=== PATIENT | female | born 1945 | race Caucasian/White ===

== ENCOUNTER 2018-03-08 15:58 | Observation (INO) | payer MEDICARE, OTHER, SELFPAY ==
[2018-03-08 16:05] VITALS: BP 125/75; PULSE 88; RESP 16; TEMP 36.3; O2SAT 97; BMI 29.7
--- NOTE | 2018-03-08 16:08 | DI.RAD.S_ITS ---
PROCEDURE: XR KNEE RT 3V INDICATIONS: Mechanical fall off 4 ft ladder, Right knee pain and medial swelling. TECHNIQUE: 3 views of the knee were acquired. COMPARISON: [facility], , KNEE 3V RIGHT, 01/05/2016, 14:30. [facility], , KNEE 3V LEFT, 01/05/2016, 14:30. FINDINGS: Bones: Heterogeneity and increased lucency involving the lateral tibial plateau and the proximal fibula is new since the previous examination and is suspicious for subtle fractures. No displaced fractures or dislocations are identified. Soft tissues: There appears to be a small joint effusion. No suspicious soft tissue calcifications. IMPRESSION: Probable nondisplaced fractures involving the left tibial plateau and head of the fibula. Please consider CT for further evaluation. Dictated by: Kvng Dc M.D. on 03/08/2018 at 16:42 Approved by: Kvng Dc M.D. on 03/08/2018 at 16:46
--- NOTE | 2018-03-08 16:09 | DI.RAD.S_ITS ---
PROCEDURE: XR ANKLE RT MIN 3V INDICATIONS: Mechanical fall off 4 ft ladder. Right ankle pain and swelling. TECHNIQUE: 3 views of the ankle were acquired. COMPARISON: [facility], , ANKLE 3 VIEWS LEFT, 01/05/2016, 14:30. FINDINGS: Bones: There is an obliquely oriented fracture identified involving the lateral malleolus that extends into the joint space. No additional fractures are appreciated. Ankle mortise is well-maintained. There distal tibial-fibular syndesmosis is not well evaluated. There may be a small developing plantar calcaneal spur. Soft tissues: There is a tibiotalar joint effusion. Soft tissue swelling about the ankle is more prominent overlying the lateral malleolus. IMPRESSION: 1. Nondisplaced lateral malleolar fracture. 2. Right tibiotalar joint effusion. Dictated by: Kvng Dc M.D. on 03/08/2018 at 16:46 Approved by: Kvng Dc M.D. on 03/08/2018 at 16:48
--- NOTE | 2018-03-08 16:42 | ED_ITS ---
HPI - Extremity Injury (Lower) <Tatiana Guaman PA-C - Last Filed: 03/08/18 22:06> General Chief Complaint: Extremity Injury, Lower Stated Complaint: FELL OFF LADDER 4 FT RT LEG INJURY Time Seen by Provider: 03/08/18 16:42 Source: patient Mode of arrival: wheelchair Limitations: no limitations History of Present Illness HPI Narrative: This 73-year-old female was up on a 4 to 4-1/2 foot ladder when she fell down, with the latter tangled in her leg. She fell onto carpet. Since then, she has had pain in the leg basically from her thigh distal. She states she really has not been able to bear weight on this due to the pain, dragged herself to the sofa and pushed herself up with her left foot. She can' t really tell whether pain is worse than 1 area versus another, she did notice a knot on the front of her ankle. She took a couple of oxycodone at home and iced the area, but still very painful. This happened about 3 hr ago. She denies any other injury. She denies any head contusion, neck or back pain. She states that she has some chronic hip pain due to bursitis, but she does not think she injured her hip at all. Related Data Home Medications Medication Instructions Recorded Confirmed CHOLECALCIFEROL (VITAMIN D3) 400 iu PO Q DAY #0 08/25/10 03/09/18 (Vitamin D3) MULTIVITAMIN/MINERALS (Thera M 1 tab PO Q DAY #0 08/25/10 03/09/18 Plus Tablet) Tiotropium [place] (Spiriva) 18 mcg RT Q DAY PRN #0 08/25/10 03/09/18 fluoxetine [Prozac] 40 mg PO QDAY #0 05/04/11 03/09/18 diphenoxylate-atropine 2 tab PO QAM AND QHS PRN #0 04/13/13 03/09/18 hydrocodone-acetaminophen [[place]] 1 tab PO PRN #0 04/13/13 03/09/18 oxycodone-acetaminophen [Percocet] 1 tab PO HS PRN #0 04/13/13 03/09/18 trazodone 50 mg PO HS #0 04/13/13 03/09/18 Allergies Allergy/AdvReac Type Severity Reaction Status Date / Time Sulfa (Sulfonamide Allergy Mild Rash Verified 03/08/18 17:07 Antibiotics) adhesive tape AdvReac Mild SENSITIVE Verified 03/08/18 17:07 TO PAPER codeine AdvReac Mild Nausea/Vomi Verified 03/08/18 17:07 ting Review of Systems <DEMARCUS Villalta Last Filed: 03/08/18 22:06> Review of Systems All systems reviewed & are unremarkable except as noted in HPI and below Exam <DEMARCUS Villalta Last Filed: 03/08/18 22:06> Narrative Exam Narrative: GENERAL APPEARANCE: Patient sitting comfortably, in no distress. LUNGS: Clear to auscultation bilaterally. HEART: Rate and rhythm regular without murmur, normal S1 and S2, no S3 or S4. MS: Right lower extremity is tender over the mid femur, entirety of the anterior knee, peña, anterior ankle and medial toes. There is moderate effusion over the right ankle. She has limited range of motion throughout secondary to tenderness. She is able to plantar flex and dorsiflex the toes with tenderness. EXTREMITIES: Ft are cool, not cold, no cyanosis, pedal pulses are intact bilaterally, sensation is grossly intact Initial Vital Signs Initial Vital Signs: Vital Signs Temperature 97.4 F L 03/08/18 16:05 Pulse Rate 88 03/08/18 16:05 Respiratory Rate 16 03/08/18 16:05 Blood Pressure 125/75 H 03/08/18 16:05 Pulse Oximetry 97 03/08/18 16:05 <Jeny Ragland DO - Last Filed: 03/09/18 02:54> Initial Vital Signs Initial Vital Signs: Vital Signs Temperature 97.4 F L 03/08/18 16:05 Pulse Rate 88 03/08/18 16:05 Respiratory Rate 16 03/08/18 16:05 Blood Pressure 125/75 H 03/08/18 16:05 Pulse Oximetry 97 03/08/18 16:05 Procedures <DEMARCUS Villalta Last Filed: 03/08/18 22:06> Orthopedic Splinting/Casting Injury #1: Additional Comments: Stirrup and knee splint were placed. Patient was comfortable in this with the knee held in slight flexion, distal sensation intact, foot is warm and pink with brisk cap refill Course <Tatiana Guaman PA-C - Last Filed: 03/08/18 22:06> Hospital Course: 1809: paged Dr. Alston, extrusion process operator for orthopedics 1824: Dr. Alston called back and is reviewing films 1914: We paged Dr. Britton again. She advised that given both of these fractures, operative fixation would likely provide more stability though patient will need to be nonweightbearing either way. We need to have her reviewed pros and cons with patient, so she requested admission to hospital and routine lab work and EKG be done as she will likely operate on this tomorrow. Patient will be allowed to eat. She will be placed in a knee immobilizer and posterior splint per Dr. Alston. Again reviewed patient's medical history. She has some occasional reactive airways with specific triggers, otherwise no history of cardiopulmonary issues. Orders Ordered: ED Orders 03/08/18 19:27 EKG-12 Lead Stat 03/08/18 19:37 Basic Metabolic Panel Stat Complete Blood Count AUTO DIFF Stat Partial Thromboplastin Time Stat Prothrombin Time INR Stat 03/08/18 21:50 Consult to Discharge Planning Routine Consult to Physical Therapy Evaluate & Treat Consult to Respiratory Therapy Evaluate & Treat Acetaminophen (Tylenol) 325 mg PO Q4HR PRN PRN Reason: As Needed For OBRIEN/Mild Pain Al Hydrox/Mg Hydrox/Simethicone (Maalox Plus) 30 ml PO QID PRN PRN Reason: Dyspepsia Bisacodyl (Dulcolax) 10 mg WI PRN PRN PRN Reason: Constipation Diphenhydramine HCl (Benadryl) 25 mg IV Q6HR PRN PRN Reason: erythema, urticaria, pruritis Docusate Sodium (Colace) 100 mg PO BID [facility] Last Admin: 03/08/18 22:36 Dose: Not Given Enoxaparin Sodium (Lovenox) 40 mg SUBCUT DAILY [facility] Stop: 03/22/18 09:01 Hydromorphone HCl (Dilaudid) 0.5 mg IV Q1HR PRN PRN Reason: Pain, Mild (1-3) Last Admin: 03/09/18 01:16 Dose: 0.5 mg Admin: 03/08/18 22:26 Dose: 0.5 mg Hydroxyzine Pamoate (Vistaril) 25 mg PO Q4HR PRN PRN Reason: N/V, spasm, agitation Last Admin: 03/09/18 02:37 Dose: 25 mg Admin: 03/08/18 22:36 Dose: 25 mg Ondansetron HCl (Zofran) 4 mg IV Q4HR PRN PRN Reason: Nausea And Vomiting Ondansetron HCl (Zofran Odt) 4 mg PO Q4HR PRN PRN Reason: Nausea And Vomiting Oxycodone/Acetaminophen (Percocet 5/325) 1 tab PO Q4HR PRN PRN Reason: Pain, Moderate (4-6) Last Admin: 03/09/18 02:37 Dose: 1 tab Admin: 03/08/18 22:37 Dose: 1 tab Sodium Biphosphate/Sodium Phosphate (Fleet Enema) 1 each WI PRN PRN PRN Reason: Constipation Sodium Chloride (Normal Saline 0.9% Flush) 10 ml IV PRN PRN PRN Reason: Flush Last Admin: 03/09/18 01:16 Dose: 10 ml Sodium Chloride (Normal Saline 0.9% Flush) 10 ml IV BID ANTONI Discontinued Medications Hydromorphone HCl (Dilaudid) 0.5 mg IV NOW ONE Stop: 03/08/18 19:28 Last Admin: 03/08/18 19:51 Dose: 0.5 mg Hydromorphone HCl (Dilaudid) 0.5 mg IV Q1HR PRN PRN Reason: Pain, Mild (1-3) Oxycodone/Acetaminophen (Percocet 5/325) 2 tab PO NOW ONE Stop: 03/08/18 17:05 Last Admin: 03/08/18 17:11 Dose: 2 tab Vital Signs - 8 hr 03/08/18 21:01 03/08/18 21:25 03/08/18 23:15 Temperature 96.7 F L 97.3 F L Pulse Rate 96 H 97 H 81 Respiratory Rate 16 20 17 Blood Pressure 133/72 H 114/66 Blood Pressure [Right Arm] 136/63 H Pulse Oximetry 96 97 94 <Jeny Ragland DO - Last Filed: 03/09/18 02:54> Orders Ordered: ED Orders 03/08/18 19:27 EKG-12 Lead Stat 03/08/18 19:37 Basic Metabolic Panel Stat Complete Blood Count AUTO DIFF Stat Partial Thromboplastin Time Stat Prothrombin Time INR Stat 03/08/18 21:50 Consult to Discharge Planning Routine Consult to Physical Therapy Evaluate & Treat Consult to Respiratory Therapy Evaluate & Treat Acetaminophen (Tylenol) 325 mg PO Q4HR PRN PRN Reason: As Needed For OBRIEN/Mild Pain Al Hydrox/Mg Hydrox/Simethicone (Maalox Plus) 30 ml PO QID PRN PRN Reason: Dyspepsia Bisacodyl (Dulcolax) 10 mg WI PRN PRN PRN Reason: Constipation Diphenhydramine HCl (Benadryl) 25 mg IV Q6HR PRN PRN Reason: erythema, urticaria, pruritis Docusate Sodium (Colace) 100 mg PO BID [facility] Last Admin: 03/08/18 22:36 Dose: Not Given Enoxaparin Sodium (Lovenox) 40 mg SUBCUT DAILY [facility] Stop: 03/22/18 09:01 Hydromorphone HCl (Dilaudid) 0.5 mg IV Q1HR PRN PRN Reason: Pain, Mild (1-3) Last Admin: 03/09/18 01:16 Dose: 0.5 mg Admin: 03/08/18 22:26 Dose: 0.5 mg Hydroxyzine Pamoate (Vistaril) 25 mg PO Q4HR PRN PRN Reason: N/V, spasm, agitation Last Admin: 03/09/18 02:37 Dose: 25 mg Admin: 03/08/18 22:36 Dose: 25 mg Ondansetron HCl (Zofran) 4 mg IV Q4HR PRN PRN Reason: Nausea And Vomiting Ondansetron HCl (Zofran Odt) 4 mg PO Q4HR PRN PRN Reason: Nausea And Vomiting Oxycodone/Acetaminophen (Percocet 5/325) 1 tab PO Q4HR PRN PRN Reason: Pain, Moderate (4-6) Last Admin: 03/09/18 02:37 Dose: 1 tab Admin: 03/08/18 22:37 Dose: 1 tab Sodium Biphosphate/Sodium Phosphate (Fleet Enema) 1 each WI PRN PRN PRN Reason: Constipation Sodium Chloride (Normal Saline 0.9% Flush) 10 ml IV PRN PRN PRN Reason: Flush Last Admin: 03/09/18 01:16 Dose: 10 ml Sodium Chloride (Normal Saline 0.9% Flush) 10 ml IV BID ANTONI Discontinued Medications Hydromorphone HCl (Dilaudid) 0.5 mg IV NOW ONE Stop: 03/08/18 19:28 Last Admin: 03/08/18 19:51 Dose: 0.5 mg Hydromorphone HCl (Dilaudid) 0.5 mg IV Q1HR PRN PRN Reason: Pain, Mild (1-3) Oxycodone/Acetaminophen (Percocet 5/325) 2 tab PO NOW ONE Stop: 03/08/18 17:05 Last Admin: 03/08/18 17:11 Dose: 2 tab Vital Signs - 8 hr 03/08/18 21:01 03/08/18 21:25 03/08/18 23:15 Temperature 96.7 F L 97.3 F L Pulse Rate 96 H 97 H 81 Respiratory Rate 16 20 17 Blood Pressure 133/72 H 114/66 Blood Pressure [Right Arm] 136/63 H Pulse Oximetry 96 97 94 MDM - Extremity Injury (Lower) <Tatiana Guaman PA-C - Last Filed: 03/08/18 22:06> Lab Data Attestation: I reviewed the patient's lab results. Result diagrams: 03/08/18 19:37 03/08/18 19:37 Lab Results 03/08/18 03/08/18 03/08/18 Range/Units 19:37 19:37 19:37 WBC 12.0 H (4.5-11.0) X10^3/uL RBC 3.80 L (4.0-5.2) X10^6/uL Hgb 11.9 L (12.0-16.0) g/dL Hct 35.6 L (36-46) % MCV 93.7 (80-100) fL MCH 31.3 (26-34) PG MCHC 33.4 (30-36) % RDW 12.9 (11.6-14.8) % Plt Count 254 (150-400) X10^3/uL Neut % (Auto) 75.8 H (50-75) % Lymph % (Auto) 13.5 L (25-40) % [place] % (Auto) 8.4 (3-14) % Eos % (Auto) 1.9 L (2-4) % Baso % (Auto) 0.4 (0-2) % Neut # (Auto) 9100 H (4411-8275) /uL PT 11.2 (10.1-12.7) SECONDS INR 1.0 (0.9-1.3) APTT 36 (26.4-36.2) SECONDS Sodium 139 (137-145) mmol/L Potassium 4.0 (3.4-5.1) mmol/L Chloride 103 (98-107) mmol/L Carbon Dioxide 28 (22-32) mmol/L BUN 15 (7-17) mg/dL Creatinine 0.80 (0.52-1.04) mg/dL Estimated GFR > 60.0 (>60) mL/min BUN/Creatinine Ratio 18.8 (6-22) Glucose 100 (80-110) mg/dL Calcium 8.9 (8.4-10.2) mg/dL Imaging Data extremity: Radiologist's impression: [place] [address] CT Scan Report Signed Patient: Meghan Bauman MR#: [id number] : 1945 Acct:[id number] Age/Sex: 73 / F Date of Service: 03/08/18 Loc: ED Accession Number: [id number] Procedure: CT LE RT wo con Ordering Provider: Tatiana Guaman P.A-C PROCEDURE: CT LE RT WO CON INDICATIONS: Fall, possible tibial plateau fracture right knee. TECHNIQUE: Noncontrast 1-1.5 mm axial sections acquired from the mid-patella to the proximal tibia, with coronal and sagittal reformats. COMPARISON: None. FINDINGS: Image quality: Diagnostic. Bones: There is a comminuted intra-articular fracture identified involving the lateral tibial plateau that predominantly is oriented vertically. Mild to moderate impaction along the posterior aspect of the lateral tibial plateau is identified with areas of articular surface offset by up to 3 mm. No involvement of the medial tibial plateau is identified. There also is a subtle fracture identified involving the head of the fibula. There is no dislocation. No additional fractures are seen. No suspicious osseous lesions are identified. Soft tissues: There is a prominent joint effusion, demonstrating increased density, suggesting hemarthrosis. Moderate soft tissue edema about the anterior-medial aspect of the knee is identified. Please note that the cartilaginous, tendinous, and ligamentous structures of the knee are not adequately evaluated on CT. There are no soft tissue masses. Intrinsic muscles appear to be within normal limits. IMPRESSION: 1. Comminuted intra-articular fracture of the lateral tibial plateau likely represents a Schatzker II fracture. 2. Nondisplaced fracture involving the head of the fibula with mild comminution. 3. Hemarthrosis of the knee [address] [address] XRay Report Signed Patient: Meghan Bauman MR#: [id number] : 1945 Acct:[id number] Age/Sex: 73 / F Date of Service: 03/08/18 Loc: ED Accession Number: [id number] Procedure: XR foot RT min 3V Ordering Provider: Tataina Guaman P.A-C PROCEDURE: XR FOOT RT MIN 3V INDICATIONS: pain s/p fall TECHNIQUE: 3 views of the foot were acquired. COMPARISON: None. FINDINGS: Bones: There is an oblique fracture identified involving the lateral malleolus. No no additional fractures are evident. There are no dislocations. No suspicious bony lesions. The there are severe degenerative changes involving the 1st metatarsophalangeal joint. 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 Moderate degenerative changes are noted involving the tarsometatarsal joints. There is a small plantar calcaneal spur. Soft tissues: There is a tibiotalar joint effusion.. IMPRESSION: 1. Lateral malleolar fracture. 2. No additional fractures of the right foot. 2. Degenerative changes of the foot are most pronounced involving the great toe. Dictated by: Kvng Dc M.D. on 03/08/2018 at 17:47 Approved by: Kvng Dc M.D. on 03/08/2018 at 17:[address] [address] XRay Report Signed Patient: Megahn Bauman MR#: [id number] : 1945 Acct:[id number] Age/Sex: 73 / F Date of Service: 03/08/18 Loc: ED Accession Number: [id number] Procedure: XR femur RT min 2V Ordering Provider: Tatiana Guaman P.A-C PROCEDURE: XR FEMUR RT MIN 2V INDICATIONS: pain s/p fall TECHNIQUE: 2 views of the femur were acquired. COMPARISON: [facility], CT, CT LE RT WO CON, 03/08/2018, 17:04. FINDINGS: Bones: No acute fracture dislocation of the right femur is evident. There is a fracture involving the lateral tibial plateau and head of the fibula. No suspicious osseous lesions are present. Soft tissues: No suspicious soft tissue calcifications or masses. IMPRESSION: No acute fracture of the right femur. Dictated by: Kvng Dc M.D. on 03/08/2018 at 17:48 Approved by: Kvng Dc M.D. on 03/08/2018 at 17:51 [place] [address] XRay Report Signed Patient: Meghan Bauman MR#: [id number] : 1945 Acct:[id number] Age/Sex: 73 / F Date of Service: 03/08/18 Loc: ED Accession Number: [id number] Procedure: XR ankle RT min 3V Ordering Provider: Tatiana Guaman P.A-C PROCEDURE: XR ANKLE RT MIN 3V INDICATIONS: Mechanical fall off 4 ft ladder. Right ankle pain and swelling. TECHNIQUE: 3 views of the ankle were acquired. COMPARISON: [facility], CR, ANKLE 3 VIEWS LEFT, 01/05/2016, 14:30. FINDINGS: Bones: There is an obliquely oriented fracture identified involving the lateral malleolus that extends into the joint space. No additional fractures are appreciated. Ankle mortise is well-maintained. There distal tibial-fibular syndesmosis is not well evaluated. There may be a small developing plantar calcaneal spur. Soft tissues: There is a tibiotalar joint effusion. Soft tissue swelling about the ankle is more prominent overlying the lateral malleolus. IMPRESSION: 1. Nondisplaced lateral malleolar fracture. 2. Right tibiotalar joint effusion. Dictated by: Kvng Dc M.D. on 03/08/2018 at 16:46 Approved by: Kvng Dc M.D. on 03/08/2018 at 16:[address] [address] XRay Report Signed Patient: Meghan Bauman MR#: [id number] : 1945 Acct:[id number] Age/Sex: 73 / F Date of Service: 03/08/18 Loc: ED Accession Number: [id number] Procedure: XR knee RT 3V Ordering Provider: Tatiana Guaman P.A-C PROCEDURE: XR KNEE RT 3V INDICATIONS: Mechanical fall off 4 ft ladder, Right knee pain and medial swelling. TECHNIQUE: 3 views of the knee were acquired. COMPARISON: [facility], , KNEE 3V RIGHT, 01/05/2016, 14:30. [facility], , KNEE 3V LEFT, 01/05/2016, 14:30. FINDINGS: Bones: Heterogeneity and increased lucency involving the lateral tibial plateau and the proximal fibula is new since the previous examination and is suspicious for subtle fractures. No displaced fractures or dislocations are identified. Soft tissues: There appears to be a small joint effusion. No suspicious soft tissue calcifications. IMPRESSION: Probable nondisplaced fractures involving the left tibial plateau and head of the fibula. Please consider CT for further evaluation. Dictated by: Kvgn Dc M.D. on 03/08/2018 at 16:42 Approved by: Kvng Dc M.D. on 03/08/2018 at 16:46 ECG Data Attestation: I personally reviewed and interpreted this ECG as follows: (NSR with rate 87, 1st degree AV block) Prior ECG tracings: not available for review <Jeny Ragland DO - Last Filed: 03/09/18 02:54> Lab Data Lab Results 03/08/18 03/08/18 03/08/18 Range/Units 19:37 19:37 19:37 WBC 12.0 H (4.5-11.0) X10^3/uL RBC 3.80 L (4.0-5.2) X10^6/uL Hgb 11.9 L (12.0-16.0) g/dL Hct 35.6 L (36-46) % MCV 93.7 (80-100) fL MCH 31.3 (26-34) PG MCHC 33.4 (30-36) % RDW 12.9 (11.6-14.8) % Plt Count 254 (150-400) X10^3/uL Neut % (Auto) 75.8 H (50-75) % Lymph % (Auto) 13.5 L (25-40) % [place] % (Auto) 8.4 (3-14) % Eos % (Auto) 1.9 L (2-4) % Baso % (Auto) 0.4 (0-2) % Neut # (Auto) 9100 H (0314-7762) /uL PT 11.2 (10.1-12.7) SECONDS INR 1.0 (0.9-1.3) APTT 36 (26.4-36.2) SECONDS Sodium 139 (137-145) mmol/L Potassium 4.0 (3.4-5.1) mmol/L Chloride 103 (98-107) mmol/L Carbon Dioxide 28 (22-32) mmol/L BUN 15 (7-17) mg/dL Creatinine 0.80 (0.52-1.04) mg/dL Estimated GFR > 60.0 (>60) mL/min BUN/Creatinine Ratio 18.8 (6-22) Glucose 100 (80-110) mg/dL Calcium 8.9 (8.4-10.2) mg/dL Discharge Plan Departure Patient Disposition: Admitted As Inpatient Discharge Date/Time: 03/08/18 21:02 Interventions: ED Discharge Assessment Last Done: 03/08/18 21:02 Admit Date/Time: 03/08/18 20:28 Admit Provider: Yessica Alston <Jeny Ragland DO - Last Filed: 03/09/18 02:54> Cosign ED Attending Kayla Attestation: I was immediately available in the department for consultation. Documentation has been reviewed. I agree with assessment and plan.
--- NOTE | 2018-03-08 16:59 | DI.RAD.S_ITS ---
PROCEDURE: XR FEMUR RT MIN 2V INDICATIONS: pain s/p fall TECHNIQUE: 2 views of the femur were acquired. COMPARISON: [facility], CT, CT LE RT WO CON, 03/08/2018, 17:04. FINDINGS: Bones: No acute fracture dislocation of the right femur is evident. There is a fracture involving the lateral tibial plateau and head of the fibula. No suspicious osseous lesions are present. Soft tissues: No suspicious soft tissue calcifications or masses. IMPRESSION: No acute fracture of the right femur. Dictated by: Kvng Dc M.D. on 03/08/2018 at 17:48 Approved by: Kvng Dc M.D. on 03/08/2018 at 17:51
--- NOTE | 2018-03-08 16:59 | DI.RAD.S_ITS ---
PROCEDURE: XR FOOT RT MIN 3V INDICATIONS: pain s/p fall TECHNIQUE: 3 views of the foot were acquired. COMPARISON: None. FINDINGS: Bones: There is an oblique fracture identified involving the lateral malleolus. No no additional fractures are evident. There are no dislocations. No suspicious bony lesions. The there are severe degenerative changes involving the 1st metatarsophalangeal joint. 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 Moderate degenerative changes are noted involving the tarsometatarsal joints. There is a small plantar calcaneal spur. Soft tissues: There is a tibiotalar joint effusion.. IMPRESSION: 1. Lateral malleolar fracture. 2. No additional fractures of the right foot. 2. Degenerative changes of the foot are most pronounced involving the great toe. Dictated by: Kvng Dc M.D. on 03/08/2018 at 17:47 Approved by: Kvng Dc M.D. on 03/08/2018 at 17:48
--- NOTE | 2018-03-08 17:04 | DI.CT.S_ITS ---
PROCEDURE: CT LE RT WO CON INDICATIONS: Fall, possible tibial plateau fracture right knee. TECHNIQUE: Noncontrast 1-1.5 mm axial sections acquired from the mid-patella to the proximal tibia, with coronal and sagittal reformats. COMPARISON: None. FINDINGS: Image quality: Diagnostic. Bones: There is a comminuted intra-articular fracture identified involving the lateral tibial plateau that predominantly is oriented vertically. Mild to moderate impaction along the posterior aspect of the lateral tibial plateau is identified with areas of articular surface offset by up to 3 mm. No involvement of the medial tibial plateau is identified. There also is a subtle fracture identified involving the head of the fibula. There is no dislocation. No additional fractures are seen. No suspicious osseous lesions are identified. Soft tissues: There is a prominent joint effusion, demonstrating increased density, suggesting hemarthrosis. Moderate soft tissue edema about the anterior-medial aspect of the knee is identified. Please note that the cartilaginous, tendinous, and ligamentous structures of the knee are not adequately evaluated on CT. There are no soft tissue masses. Intrinsic muscles appear to be within normal limits. IMPRESSION: 1. Comminuted intra-articular fracture of the lateral tibial plateau likely represents a Schatzker II fracture. 2. Nondisplaced fracture involving the head of the fibula with mild comminution. 3. Hemarthrosis of the knee. Dictated by: Kvng Dc M.D. on 03/08/2018 at 17:55 Approved by: Kvng Dc M.D. on 03/08/2018 at 17:58
[2018-03-08] MEDS: OXYCODONE/ACETAMINOPHEN 5/325 TABLET 2 TAB PO (17:11)
[2018-03-08 17:51] VITALS: BP 128/77; PULSE 77; RESP 16; TEMP 36.1; O2SAT 96
[2018-03-08 19:49] LABS: Add Manual Diff / Slide Review NO; Basophils Percent Auto 0.4 % (0-2); Eosinophils Percent Auto 1.9 % (2-4); Hematocrit 35.6 % (36-46); Hemoglobin 11.9 g/dL (12.0-16.0); Lymphocytes Percent Auto 13.5 % (25-40); Mean Corpuscular HGB Conc 33.4 % (30-36); Mean Corpuscular Hemoglobin 31.3 PG (26-34); Mean Corpuscular Volume 93.7 fL (80-100); Monocytes Percent Auto 8.4 % (3-14); Neutrophils Absolute Auto 9100 /uL (3000-5900); Neutrophils Percent Auto 75.8 % (50-75); Platelet Count 254 X10^3/uL (150-400); Red Cell Distribution Width 12.9 % (11.6-14.8)
[2018-03-08] MEDS: HYDROMORPHONE 0.5 MG INJ IV ×2 (19:51→22:26)
[2018-03-08 19:59] LABS: Prothrombin Time 11.2 SECONDS (10.1-12.7)
[2018-03-08 20:01] LABS: PTT Partial Thromboplastin Tim 36 SECONDS (26.4-36.2)
[2018-03-08 20:02] LABS: BUN Creatinine Ratio 18.8 (6-22); Blood Urea Nitrogen 15 mg/dL (7-17); Calcium 8.9 mg/dL (8.4-10.2); Carbon Dioxide 28 mmol/L (22-32); Chloride 103 mmol/L (98-107); Estimated Glomerular Filt Rate > 60.0 mL/min (>60); Glucose 100 mg/dL (80-110); HEMOLYSIS < 15 (0-50); Sodium 139 mmol/L (137-145)
[2018-03-08 21:01] VITALS: BP 136/63; PULSE 96; RESP 16; O2SAT 96
[2018-03-08 21:25] VITALS: BP 133/72; PULSE 97; RESP 20; TEMP 35.9; O2SAT 97
[2018-03-08 21:29] VITALS: BMI 29.7
--- NOTE | 2018-03-08 22:33 | P.HP_ITS ---
History of Present Illness Date Patient Seen: 03/08/18 Time Patient Seen: 20:21 Chief complaint: FELL OFF LADDER 4 FT RT LEG INJURY Narrative: Patient is a active 73-year-old female that sustained a fall off a ladder at home this afternoon. Patient states she fell approximately 4 feet and her right foot and leg got entangled in the latter on the way down. She had immediate right leg pain at the ankle and knee. I was unable to bear weight on the right side. She denies any loss of consciousness. She does state that she bruised her right elbow and has some soreness in her shoulder but denies other injuries. She does have a past medical history significant for lumbar surgery with Dr. Gary. She denies any history of diabetes or cardiopulmonary problems. She does not tolerate codeine but does well with Percocet or oxycodone. She is a community ambulator without assistive devices at baseline. She does not use tobacco. She does state she briefly got up using a walker to go to the bathroom but this was very difficult due to pain. She lives with her .Pain descriptors Duration: 5 hours Severity: Moderate to severe when the injury occurred, at rest and after pain medication pain is controlled well Quality: Aching swelling sharp pain Location: Right knee and ankle Context: Unable to bear weight, fell off a 4 foot ladder, twisting injury to ankle Modifying factors: Rest, immobilization, ice, pain medication Patient History Medical History Closed right ankle fracture (Acute) Tibial plateau fracture, right (Acute) Bilateral hip bursitis (Chronic) Irritable bowel syndrome (IBS) (Chronic) Low back pain (Chronic) Reactive airway disease (Chronic) H/O: hysterectomy (Resolved) Hypothyroidism (Inactive) Surgical History H/O lumbosacral spine surgery (Resolved) Hx of cholecystectomy (Resolved) Status post right foot surgery (Resolved) Family & Social History Family History: Reviewed 03/08/18 by Yessica Alston MD Social History: household members spouse Prior Living Arrangements House Safety & Behavioral: Feels Safe in Current Yes Environment Been Physically Hurt or No Threatened By a Person Suicidal Ideation Description None Suicide Plan Description No Plan Tobacco & Substance use: Tobacco type cigarettes Smoking Status Former smoker alcohol intake frequency holiday/special occasion Substance Use Type does not use Meds Home Medications Medication Instructions Recorded Confirmed Type CHOLECALCIFEROL (VITAMIN D3) 400 iu PO Q DAY #0 08/25/10 History (Vitamin D3) MULTIVITAMIN/MINERALS (Thera M 1 tab PO Q DAY #0 08/25/10 History Plus Tablet) Tiotropium [place] (Spiriva) 18 mcg RT Q DAY #0 08/25/10 History fluoxetine [Prozac] 20 mg PO QDAY #0 05/04/11 History OMEPRAZOLE 20 mg PO QDAY #0 04/13/13 History diphenoxylate-atropine 1 tab PO PRN #0 04/13/13 History hydrocodone-acetaminophen [[place]] 1 tab PO PRN #0 04/13/13 History oxycodone-acetaminophen [Percocet] 1 tab PO HS #0 04/13/13 History trazodone 50 mg PO HS #0 04/13/13 History Allergies Allergy/AdvReac Type Severity Reaction Status Date / Time Sulfa (Sulfonamide Allergy Mild Rash Verified 03/08/18 17:07 Antibiotics) adhesive tape AdvReac Mild SENSITIVE Verified 03/08/18 17:07 TO PAPER codeine AdvReac Mild Nausea/Vomi Verified 03/08/18 17:07 ting Review of Systems Review of Systems Positive for right lower extremity musculoskeletal pain. Otherwise negative All systems reviewed & are unremarkable except as noted in HPI and below Exam Vital Signs (past 8 hours): - 03/08/18 16:05 03/08/18 17:51 03/08/18 21:01 Temperature 97.4 F L 97.0 F L Pulse Rate 88 77 96 H Respiratory Rate 16 16 16 Blood Pressure 125/75 H Blood Pressure [Right Arm] 128/77 H 136/63 H Pulse Oximetry 97 96 96 03/08/18 21:25 Temperature 96.7 F L Pulse Rate 97 H Respiratory Rate 20 Blood Pressure 133/72 H Blood Pressure [Right Arm] Pulse Oximetry 97 Oxygen Delivery Method Room Air Narrative Exam Narrative: General examination: Alert oriented in no acute distress resting on the gurney HEENT: NCAT Respiratory: Breathing unlabored on room air, lungs clear to auscultation Cardiovascular: Regular rate and rhythm Abdomen: Soft nontender Musculoskeletal: Bilateral upper extremities full range of motion of the shoulder and elbow. There is mild ecchymosis on the medial aspect of the right elbow compartments are soft. Patient demonstrates active full shoulder and elbow range of motion. Sensation intact to light touc median radial ulnar nerves. Right lower extremity: Long-leg splint in place, removed briefly for examination and replaced. Knee with moderate swelling and effusion. Tender to palpation lateral joint line. No increased varus or valgus laxity on stress testing. No open wounds. Compartments soft. Calf nontender. Mild swelling and tenderness to palpation at the lateral malleolus. No tenderness along the medial malleolus or deltoid or fifth metatarsal base. Patient demonstrates active plantar flexion dorsiflexion of her foot. Sensation is intact to light touch in superficial peroneal, deep peroneal, sural, saphenous nerve distributions. Brisk capillary refill. Wiggles toes. Left lower extremity: Atraumatic, full range of motion no tenderness or strength and normal sensation. Stable knee ligamentous examination. Objective Imaging ct knee: My impression: Tibial plateau fracture, lateral split depression type fracture involving the posterior lateral tibial plateau depressed component approximately 3 mm very posterior aspect of the lateral tibial plateau . fibular head fracture ankle xray: My impression: 3 views nonweightbearing right ankle AP, mortise, lateral demonstrates nondisplaced oblique lateral malleolus fracture. Labs Result Diagrams: 03/08/18 19:37 03/08/18 19:37 Labs: Laboratory Results - last 24 hr 03/08/18 03/08/18 03/08/18 19:37 19:37 19:37 WBC 12.0 H RBC 3.80 L Hgb 11.9 L Hct 35.6 L MCV 93.7 MCH 31.3 MCHC 33.4 RDW 12.9 Plt Count 254 Neut % (Auto) 75.8 H Lymph % (Auto) 13.5 L [place] % (Auto) 8.4 Eos % (Auto) 1.9 L Baso % (Auto) 0.4 Neut # (Auto) 9100 H PT 11.2 INR 1.0 APTT 36 Sodium 139 Potassium 4.0 Chloride 103 Carbon Dioxide 28 BUN 15 Creatinine 0.80 Estimated GFR > 60.0 BUN/Creatinine Ratio 18.8 Glucose 100 Calcium 8.9 Assessment & Plan (1) Tibial plateau fracture, right: Current visit: Yes Status: Acute Plan: Assessment/Plan Narrative: Patient is a 73-year-old female that fell off a ladder and sustained a lateral malleolus fracture and lateral tibial plateau fracture on the right lower extremity. Regarding the lateral malleolus fracture: it is nondisplaced and she has no medial tenderness or evidence of instability on examination. We discussed that the general treatment for a nondisplaced stable lateral malleolus fracture is nonoperative. Regarding the lateral tibial plateau fracture it is a split depression type fracture. Schamikhailker 2, however the depression is very posterior at the very posterior rim of the lateral plateau, and only 3 mm maximal the majority of the fracture is nondisplaced. I discussed for displaced split fractures or fractures with significant depressed component surgery is typically recommended to restore the joint line and reduce the risk of posttraumatic arthritis. However in this patient's case with the very posterior lateral fracture with minimal articular surface involvement I do not believe that open reduction internal fixation would provide a significantly different outcome for her. We discussed the risks and benefits of surgery versus nonoperative treatment. Whether treatment with surgery or not this injury does increase the risk of posttraumatic arthritis and stiffness. And both treatments would require the same nonweightbearing of 8 -12 weeks. We discussed that this should be symptomatic in the future standard treatments for arthritis including anti-inflammatories, injections or arthroplasty surgery will be options. Unfortunately being nonweightbearing on the right lower extremity will be difficult for her as she does not tolerate crutches very well. She will be able to put her foot down for balance, but I would like her to avoid bearing weight through the joints to protect the knee. She will be maintained in a splint overnight. We will arrange for a knee immobilizer or a hinged knee brace for her on the floor and combine this with a small stirrup splint for the ankle. If we are unable to obtain a hinged knee brace then we will keep her in the knee immobilizer for1-2 wks and obtain one in the clinic and have her start physical therapy for range of motion at this time. In the hospital, the patient will work with physical therapy, we discussed that she may require placement depending on the amount of help she has at home, she will need to use a wheelchair/or seated type rolling walker if she is unable to use crutches. The patient understands and agrees with the plan DVT prophylaxis, SCD on left lower extremity, Lovenox 40 mg daily part of this note was generated using a voice recognition technology. While attempts have been made to correct mistakes, some of the common errors are words that sound phonetically similar to the intended words. Please take this into consideration and use clinical context when necessary. Quality VTE Deep Vein Thrombosis/Pulmonary Embolism Present on Admission: No
[2018-03-08] MEDS: hydrOXYzine pamoate 25 MG CAPSULE PO (22:36)
[2018-03-08] MEDS: OXYCODONE/ACETAMINOPHEN 5/325 TABLET 1 TAB PO (22:37)
[2018-03-08 23:15] VITALS: BP 114/66; PULSE 81; RESP 17; TEMP 36.3; O2SAT 94
[2018-03-09] MEDS: HYDROMORPHONE 0.5 MG INJ IV ×6 (01:16→20:44)
[2018-03-09] MEDS: SODIUM CHLORIDE 0.9% FLUSH 10 ML IV ×4 (01:16→20:46)
[2018-03-09] MEDS: hydrOXYzine pamoate 25 MG CAPSULE PO ×4 (02:37→20:45)
[2018-03-09] MEDS: OXYCODONE/ACETAMINOPHEN 5/325 TABLET 1 TAB PO ×5 (02:37→23:39)
[2018-03-09 05:18] VITALS: BP 113/62; PULSE 77; RESP 18; TEMP 37; O2SAT 95
[2018-03-09 07:30] VITALS: BP 118/59; PULSE 86; RESP 18; TEMP 36.6; O2SAT 96
[2018-03-09] MEDS: ENOXAPARIN 40 MG/0.4 ML SYRINGE SUBCUT (08:55)
[2018-03-09] MEDS: DOCUSATE 100 MG CAPSULE PO (08:56)
--- NOTE | 2018-03-09 09:48 | PM.PN.1 ---
Subjective Date Patient Seen: 03/09/18 Time Patient Seen: 09:48 Interval history: Hospital day 1 right lateral tibial plateau fracture right nondisplaced lateral fibula fracture. The patient has minimally/nondisplaced fractures of both the right lateral tibial plateau and lateral malleolus. She has been indicated for nonoperative treatment. She does have moderate pain about the knee. Pain is well controlled at the ankle. Getting pretty good relief from the Percocet and no nausea overnight. She does think she will have enough help at home to go home and be safely nonweightbearing. She denies numbness or tingling, fevers or chills. Exam Vital Signs (past 8 hours): - 03/09/18 05:18 03/09/18 07:30 Temperature 98.6 F 97.8 F Pulse Rate 77 86 Respiratory Rate 18 18 Blood Pressure 113/62 118/59 L Pulse Oximetry 95 96 Oxygen Delivery Method Room Air Narrative Exam Narrative: Alert and oriented no acute distress sitting up eating breakfast in bed.ncat. Abdomen soft. Right lower extremity is in a long-leg splint. This is taken down and switched out to a knee immobilizer and stirrup splint for the ankle, her skin is inspected: No lacerations mild swelling about the knee no concern for compartment syndrome. Compartments soft. Calf soft. Moderate tenderness to palpation around the lateral joint line. No increased valgus alignment or instability on varus and valgus stress testing. Able to demonstrate dorsiflexion and plantar flexion of the ankle. She is able to demonstrate hip flexion and hold her leg up for short amount of time. Remainder strength examination is deferred due to injury. Sensation is grossly intact to light touch superficial peroneal deep peroneal sural and saphenous distributions. Mild tenderness about the lateral malleolus. No tenderness along the medial malleolus or 5th metatarsal base. Very minimal swelling at the ankle. Objective Labs Result Diagrams: 03/08/18 19:37 03/08/18 19:37 Labs: Laboratory Results - last 24 hr 03/08/18 03/08/18 03/08/18 19:37 19:37 19:37 WBC 12.0 H RBC 3.80 L Hgb 11.9 L Hct 35.6 L MCV 93.7 MCH 31.3 MCHC 33.4 RDW 12.9 Plt Count 254 Neut % (Auto) 75.8 H Lymph % (Auto) 13.5 L [place] % (Auto) 8.4 Eos % (Auto) 1.9 L Baso % (Auto) 0.4 Neut # (Auto) 9100 H PT 11.2 INR 1.0 APTT 36 Sodium 139 Potassium 4.0 Chloride 103 Carbon Dioxide 28 BUN 15 Creatinine 0.80 Estimated GFR > 60.0 BUN/Creatinine Ratio 18.8 Glucose 100 Calcium 8.9 Assessment & Plan Plan: Assessment/Plan Narrative: Right lateral tibial plateau fracture with minimal displacement at the very posterior margin of the tibial plateau. Right nondisplaced lateral malleolus fracture. Non operative treatment. The patient will need to be nonweightbearing for approximately 8 weeks based on the tibial plateau fracture. We will place her in a knee immobilizer and stirrup splint for the ankle fracture. She will be nonweightbearing. She may place the foot flat on the ground for balance, but do not weightbear through it. She will need to use assistive devices and/or wheelchair to be nonweightbearing. She will work with Physical therapy occupational therapy. If resources at home are adequate anticipate discharge home likely tomorrow otherwise may require a snf placement. We will initiate DVT prophylaxis with Lovenox for 2 weeks and then possibly switch to aspirin. Patient has no other risk factors for DVT except immobilization and age. Patient will follow up in the clinic in 10-14 days for repeat radiographs and transition to a hinged knee immobilizer and initiation of physical therapy and knee range of motion. She will remain nonweightbearing for 8 weeks. The patient understands and agrees with plan. Time Spent With Patient Time with patient: less than 15 minutes Quality VTE Deep Vein Thrombosis/Pulmonary Embolism Present on Admission: No
--- NOTE | 2018-03-09 10:34 | RT ---
Explaine purpose and technique of IS. Pt. demonstrates understanding. Good technique. Pt. understands to take it home and continue using it.
--- NOTE | 2018-03-09 10:38 | PT.IIE ---
Current Diagnoses Displaced bicondylar fracture of right tibia, initial encounter for closed fracture (03/08/18) Surgical History (Last Reviewed 03/08/18 @ 22:38 by Yessica Alston MD) H/O lumbosacral spine surgery (Resolved) Hx of cholecystectomy (Resolved) Status post right foot surgery (Resolved) Medical History (Last Updated 03/08/18 @ 22:47 by Yessica Alston MD) Closed right ankle fracture (Acute) Tibial plateau fracture, right (Acute) Bilateral hip bursitis (Chronic) Irritable bowel syndrome (IBS) (Chronic) Low back pain (Chronic) Reactive airway disease (Chronic) H/O: hysterectomy (Resolved) Hypothyroidism (Inactive) Physical Therapy Inpatient Evaluation/Re-Eval M1 PT/OT-IP Prior Functional Status Start: 03/09/18 10:22 Freq: Status: Active Protocol: Document 03/09/18 10:20 [facility] (Rec: 03/09/18 10:38 [facility] [id number]) Medical Review Prior Functional Status Medical History Reviewed Yes Mobility and Gait Community ambulator without device Activities of Daily Living and IADL's indep. I/ADLs Social History Household Members spouse Living Arrangements House Number of Floors (Floors) One Floor Number of Stairs To Enter/Railing? No steps Home Environment Standard Height Toilet Walk in Shower Tub/Shower Home Equipment Four Wheel Walker Manual Wheelchair Shower Seat without Backrest Additional Social History Comment head and foot of bed adjustable. M2 PT-IP Current Condition Start: 03/09/18 10:22 Freq: Status: Active Protocol: Document 03/09/18 10:20 [facility] (Rec: 03/09/18 10:38 [facility] [id number]) Physical Therapy Current Condition Current Condition Evaluation Date 03/09/18 Treatment Diagnosis R tibial plateau and lateral malleolus fx, impaired mobility Onset Date 03/08/18 Precautions Brace R knee immobilizer @ all times OOB- Dr. Alston fitted pt with knee immobilizer prior to this session. Weight Bearing Status Weight Bearing Status Non-Weight Bearing Allowed Weight Bearing Amount (enter % NWB RLE 8-12 weeks. or #) (%) M3 PT-IP Subjective Start: 03/09/18 10:22 Freq: Status: Active Protocol: Document 03/09/18 10:20 [facility] (Rec: 03/09/18 10:38 [facility] [id number]) Subjective Physical Therapy Visit Type Type Initial Evaluation Visit Start Time 09:45 Visit Stop Time 10:20 Total Visit Minutes 35 Number of CELL ROOM OPERATOR Visits 0 Physical Therapy Visit Comments Patient Comments Pt notes that she has a manual w/c and 4WW at home to use. Patient/Caregiver Goals Decrease pain, be able to go home. Therapy Pain Assessment Pain When Pain Assessed At Rest Pain Present Pain Present Pain Reported Location Right Leg Intensity 8 Scale Used Numeric (1 - 10) Pain Management Techniques Modification of Treatment M4 PT-IP Mobility and Gait Start: 03/09/18 10:22 Freq: Status: Active Protocol: Document 03/09/18 10:20 [facility] (Rec: 03/09/18 10:38 [facility] [id number]) PT-Bed Mobility Assessment Supine to Sit Supine to Sit Standby Assistance Sit to Supine Sit to Supine Standby Assistance Scooting Scooting to Edge of Bed Independent PT-Transfer Assessment Sit to and From Stand Sit to and from Stand Standby Assistance Equipment Transfer Assistive Device Gait Belt Front Wheeled Walker Transfers Transfer Destination Bed Transfer Technique Stand Step Pivot Transfer Ability Level of Assist Contact Guard Assistance Comments Mobility Comments Pt using alternating heel/toe pivot on the L foot to move laterally, forward, backward. Gait Assessment Gait Gait Assistance Required: Contact Guard Assist Distance (Feet) (feet) 10 Assistive Devices Assistive Device Gait Belt Front Wheeled Walker Comments Gait Comments Pt using alternating heel/toe pivot on the L foot to move laterally, forward, backward. PT-Balance Assessment Sitting Balance and Reactions Static Sitting Balance Ability Normal Dynamic Sitting Balance Ability Normal Standing Balance and Reactions Static Standing Balance Ability Good Dynamic Standing Balance Ability Good Device Used FWW M5 PT-IP Objective Assessments Start: 03/09/18 10:22 Freq: Status: Active Protocol: Document 03/09/18 10:20 [facility] (Rec: 03/09/18 10:38 [facility] [id number]) Orientation Orientation/Cognition Level of Alertness Alert Orientation Name Age Birthday Month Date Year Day of Week Place Situation Language Function Ability No Deficits Noted Safety Awareness Understands Safety Issues Memory Description No Deficits Noted Gross Range of Motion Lower Extremity ROM Assessment Right Impaired Impairments R knee immobilizer due to tibial plateau and lateral malleolus fx. Strength Lower Extremity Strength Assessment Right Impaired Comments Strength Comments RLE weakness but not formally tested due to fx- requires own UE support for SLR. Coordination Assessment Gross Coordination Gross Coordination WNL Sensation Assessment Sensation Gross Sensation WNL Muscle Tone Muscle Tone WNL Yes M6 PT-IP Treatment Start: 03/09/18 10:22 Freq: Status: Active Protocol: Document 03/09/18 10:20 [facility] (Rec: 03/09/18 10:38 [facility] [id number]) Physical Therapy Treatment Education Education Provided Precautions Weight Bearing Status Safety Equipment Issued Equipment Type and Company R knee immobilizer placed on pt by Dr. Alston- 16 universal immobilizer from [employer]. M7 PT-IP Assessment and Plan Start: 03/09/18 10:22 Freq: Status: Active Protocol: Document 03/09/18 10:20 [facility] (Rec: 03/09/18 10:38 [facility] [id number]) PT Summary Assessment and Plan Potential Rehabilitation Potential Good Status of Condition at Evaluation Evolving Summary Impairments Pain ROM Strength Balance Gait Activity Tolerance Assessment Summary Pt fitted for knee immobilizer by Dr. Alston prior to this session. Pt was able to perform short distance gait with increased fatigue, and transfer using a FWW and CGA. Pt appears to have good support at home, able to assist upon d/c. She does report having a wheelchair with elevating leg rests, but her family will have to bring it to her home, which pt reports should not be a problem. Pt would benefit from ongoing skilled physical therapy for further transfer, gait, and balance training, and caregiver training prior to d/c. Expect pt to be able to d/c home when medically stable. Goals Bed Mobility Goal Independent Transfer Goal Independent Gait Goal Independent Gait Distance 20 Days to Meet Goals 2 Frequency of Treatment Frequency Of Treatment Twice a Day Treatment Plan Physical Therapy Treatment Plan Bed Mobility Training Transfer Training Gait Training Therapeutic Exercise Balance Retraining Discharge Planning Hot or Cold Pack Other Recommendations and Next Treatment trial transfer with 4WW (pt Focus has 4WW at home, she would prefer to use this vs FWW). Recommendations To Nursing Amount of Assist Needed 1 Person Assist Discharge Recommendations PT Discharge Recommendations Home with Assistance Equipment Needed for Home Before FWW if unable to safely Discharge maneuver/manage 4WW.
[2018-03-09] MEDS: diphenhydrAMINE 50 MG/ML VIAL 25 MG IV ×2 (11:05→20:43)
--- NOTE | 2018-03-09 11:53 | CM.DPC ---
DCP: Case received, EMR reviewed, spoke with Dr. Pena and then with PT Daren re POC and then met with pt. Introduced self and role. DCP template completed with information currently available. Pt is a 73 year old female who admitted last night to care of Orthopedic surgeon: Dr. Yessica Alston after a fall off a 4 ft ladder. Payer: Medicare and [employer]. Admission status currently inpt. UR RN is reviewing and notes probability of a change to observation status. Pt landed on R side, bruising arm and with R leg and ankle fracture. No surgical intervention is currently required. Pt has been fitted with a leg brace and will have a hinged brace put in place later with Dr. Alston at clinic. Ankle is splinted. NWB to leg planned for 8 weeks. Pt is expressing a strong desire to recover at home and Dr. Alston is supportive of same. She does agree to an OT order, expected tomorrow when OT is available (VVO is placed) PT Daren did see pt and is also supportive of her home plan. He will incorporate pt's spouse into the training session this afternoon. Pt does say her is in good health and very capable of assisting her. She is able today to get up and get to the bathroom using the FWW and maintaining the NWB restriction. P: home likely tomorrow after therapy session, with spouse support. Dr. Alston states no need for HH services
[2018-03-09 12:05] VITALS: BP 118/66; PULSE 80; RESP 18; TEMP 36.6; O2SAT 96
--- NOTE | 2018-03-09 14:02 | PT.IPTN ---
Current Diagnoses Displaced bicondylar fracture of right tibia, initial encounter for closed fracture (03/08/18) Physical Therapy Treatment Note M2 PT-IP Current Condition Start: 03/09/18 10:22 Freq: Status: Active Protocol: Document 03/09/18 10:20 [facility] (Rec: 03/09/18 10:38 [facility] [id number]) Physical Therapy Current Condition Current Condition Evaluation Date 03/09/18 Treatment Diagnosis R tibial plateau and lateral malleolus fx, impaired mobility Onset Date 03/08/18 Precautions Brace R knee immobilizer @ all times OOB- Dr. Alston fitted pt with knee immobilizer prior to this session. Weight Bearing Status Weight Bearing Status Non-Weight Bearing Allowed Weight Bearing Amount (enter % NWB RLE 8-12 weeks. or #) (%) M3 PT-IP Subjective Start: 03/09/18 10:22 Freq: Status: Active Protocol: Document 03/09/18 14:01 [facility] (Rec: 03/09/18 14:02 [facility] [id number]) Subjective Physical Therapy Visit Type Type Patient Refusal Notes Pt refused stating her resting pain was an 8.5-9/10. Will check back with pt in the morning.
[2018-03-09 15:33] VITALS: BP 100/55; PULSE 83; RESP 16; TEMP 36.6; O2SAT 94
[2018-03-09 19:42] VITALS: BP 115/63; PULSE 89; RESP 16; TEMP 37.1; O2SAT 95
[2018-03-10 00:01] VITALS: BP 104/55; PULSE 83; RESP 18; TEMP 36.7; O2SAT 93
--- NOTE | 2018-03-10 01:04 | PC.NURSE ---
Addendum entered by Tita Lim R.N. 03/10/18 03:45: Patient complains of 8/10 right ankle pain. Requested 2 Percocet as last time 1tab was ineffective in alleviating pain; medicated as requested since MD order indicates may give 2nd tab if 1 tab is ineffective. Original Note: Patient is alert and oriented. Complained of 6/10 pain at shift change so was provided an additional tab of Percocet since order indicates if 1 tab does not work may give 2nd tab; now states pain improved to 4/10. Breath sounds CTA with RA sat of 96%. HRR. Denies nausea. BT present and abdomen is soft. Denies dysuria, frequency, urgency or incontinence. Independent with bed mobility and is assisted to bathroom with 1 person + walker. Wearing knee immobilizer on right leg. Brusing noted on right posterior upper arm and elbow. Refusing to wear SCD's but is receiving Lovenox. CMS intact. Fall risk score is high and bed alarm is activated.
[2018-03-10 03:16] VITALS: BP 130/71; PULSE 84; RESP 16; TEMP 36.7; O2SAT 96
[2018-03-10] MEDS: OXYCODONE/ACETAMINOPHEN 5/325 TABLET 1 TAB PO ×4 (03:37→08:20)
--- NOTE | 2018-03-10 07:44 | PM.DS.1 ---
History of Present Illness Chief complaint: FELL OFF LADDER 4 FT RT LEG INJURY Narrative: Patient is a active 73-year-old female that sustained a fall off a ladder at home this afternoon. Patient states she fell approximately 4 feet and her right foot and leg got entangled in the latter on the way down. She had immediate right leg pain at the ankle and knee. I was unable to bear weight on the right side. She denies any loss of consciousness. She does state that she bruised her right elbow and has some soreness in her shoulder but denies other injuries. She does have a past medical history significant for lumbar surgery with Dr. Gary. She denies any history of diabetes or cardiopulmonary problems. She does not tolerate codeine but does well with Percocet or oxycodone. She is a community ambulator without assistive devices at baseline. She does not use tobacco. She does state she briefly got up using a walker to go to the bathroom but this was very difficult due to pain. She lives with her .Pain descriptors Duration: 5 hours Severity: Moderate to severe when the injury occurred, at rest and after pain medication pain is controlled well Quality: Aching swelling sharp pain Location: Right knee and ankle Context: Unable to bear weight, fell off a 4 foot ladder, twisting injury to ankle Modifying factors: Rest, immobilization, ice, pain medication Discharge Providers Date of admission: 03/08/18 20:28 Primary care physician: John Almeida MD Consults: 03/08/18 21:50 Consult to Discharge Planning Routine Comment: possible snf Consult to Physical Therapy Evaluate & Treat Comment: NWB RLE for lateral tibial plateau fx/ ankle fx Physician Instructions: Evaluate and Treat Consult to Respiratory Therapy Evaluate & Treat Comment: Physician Instructions: Evaluate and treat 03/09/18 11:21 Consult to Occupational Therapy Evaluate & Treat Comment: Physician Instructions: Evaluate and treat Discharge provider: Yessica Alston MD Exam Vital Signs (past 8 hours): - 03/10/18 00:01 03/10/18 03:16 Temperature 98.1 F 98.0 F Pulse Rate 83 84 Respiratory Rate 18 16 Blood Pressure 104/55 L 130/71 H Pulse Oximetry 93 96 Oxygen Delivery Method Room Air Objective Labs Result Diagrams: 03/08/18 19:37 03/08/18 19:37 Discharge Plan Discharge Plan Patient Disposition: Home, Self-Care Discharge comment: Discharge home on transportation arranged Provider Discharge Instructions Diet: Diet as Tolerated Activity: Nonweightbearing right lower extremity. Okay to remove knee immobilizer to shower-replace after Cold/Heat Therapy: Use ice and elevation as needed for swelling Wound Care Report to your healthcare provider any signs of infection, such as:: chills, fever, night sweats and increased pain Discharge Data Primary Care Provider: John Almeida V Attending Provider: Yessica Alston Admit Date/Time: 03/08/18 20:28 Quality VTE Deep Vein Thrombosis/Pulmonary Embolism Present on Admission: No
--- NOTE | 2018-03-10 07:48 | PM.DS.1 ---
History of Present Illness Chief complaint: FELL OFF LADDER 4 FT RT LEG INJURY Narrative: Patient is a active 73-year-old female that sustained a fall off a ladder at home this afternoon. Patient states she fell approximately 4 feet and her right foot and leg got entangled in the latter on the way down. She had immediate right leg pain at the ankle and knee. I was unable to bear weight on the right side. She denies any loss of consciousness. She does state that she bruised her right elbow and has some soreness in her shoulder but denies other injuries. She does have a past medical history significant for lumbar surgery with Dr. Gary. She denies any history of diabetes or cardiopulmonary problems. She does not tolerate codeine but does well with Percocet or oxycodone. She is a community ambulator without assistive devices at baseline. She does not use tobacco. She does state she briefly got up using a walker to go to the bathroom but this was very difficult due to pain. She lives with her .Pain descriptors Duration: 5 hours Severity: Moderate to severe when the injury occurred, at rest and after pain medication pain is controlled well Quality: Aching swelling sharp pain Location: Right knee and ankle Context: Unable to bear weight, fell off a 4 foot ladder, twisting injury to ankle Modifying factors: Rest, immobilization, ice, pain medication Discharge Providers Date of admission: 03/08/18 20:28 Primary care physician: John Almeida MD Consults: 03/08/18 21:50 Consult to Discharge Planning Routine Comment: possible snf Consult to Physical Therapy Evaluate & Treat Comment: NWB RLE for lateral tibial plateau fx/ ankle fx Physician Instructions: Evaluate and Treat Consult to Respiratory Therapy Evaluate & Treat Comment: Physician Instructions: Evaluate and treat 03/09/18 11:21 Consult to Occupational Therapy Evaluate & Treat Comment: Physician Instructions: Evaluate and treat Discharge provider: Yessica Alston MD Discharge Date: 03/10/18 Summary Discharge Diagnosis: Right nondisplaced lateral tibial plateau fracture Right nondisplaced lateral malleolus fracture Hospital Course: The patient is a 73-year-old female that sustained a fall off a ladder she sustained a right lateral tibial plateau fracture with minimal posterior lateral depression, as well as a nondisplaced lateral fibular fracture. The patient has been indicated for non operative management. She is nonweightbearing on the right lower extremity due to the tibial plateau fracture. She has been placed in a knee immobilizer and a stirrup splint for the ankle. She worked with Physical therapy and Occupational therapy. She did well complying with nonweightbearing. Her pain was controlled on oral medications. She has tolerated oral diet. She has been cleared for discharge home today. She has DVT prophylaxis with SCDs and Lovenox subcu daily. Status at Discharge Cognitive/behavioral status at discharge: Baseline status. Patient is able to safely perform transfers. Use a walker and wheelchair as needed Overall status at discharge: patient is back to baseline Time Spent with Patient Less than 30 minutes Exam Vital Signs (past 8 hours): - 03/10/18 00:01 03/10/18 03:16 Temperature 98.1 F 98.0 F Pulse Rate 83 84 Respiratory Rate 18 16 Blood Pressure 104/55 L 130/71 H Pulse Oximetry 93 96 Oxygen Delivery Method Room Air Narrative Exam Narrative: The patient is alert and oriented no acute distress. HEENT : ncat. Respiratory: Breathing nonlabored on room air. Heart regular rate and rhythm Abdomen soft Musculoskeletal exam: Left upper extremity and lower extremity show full strength full range of motion and sensation intact to light touch. Brisk capillary refill Right upper extremity: Full strength all muscle groups. Sensation intact to light touch median radial ulnar nerves. Palpable radial pulse full range of motion Right lower extremity: Mild swelling about the knee. Compartments soft and compressible. Negative Homans. Brisk capillary refill to the toes. Demonstrates active 5/5 dorsiflexion plantar flexion. Minimal edema about the ankle. Minimal tenderness of the lateral malleolus. Moderate tenderness along the lateral tibial plateau/joint line. Patient is able to demonstrate active hip flexion. Strength testing about the knee is deferred due to acute injury. There is no increased varus or valgus laxity on stress examination. Palpable dorsalis pedis pulse. Ankle stirrup splint and knee immobilizer in place Objective Labs Result Diagrams: 03/08/18 19:37 03/08/18 19:37 Discharge Plan Discharge Plan Patient Disposition: Home, Self-Care Discharge comment: Discharge home on transportation arranged Provider Discharge Instructions Diet: Diet as Tolerated Activity: Nonweightbearing right lower extremity. Okay to remove knee immobilizer to shower-replace after Cold/Heat Therapy: Use ice and elevation as needed for swelling Wound Care Report to your healthcare provider any signs of infection, such as:: chills, fever, night sweats and increased pain Discharge Data Primary Care Provider: John Almeida V Attending Provider: Yessica Alston Admit Date/Time: 03/08/18 20:28 Quality VTE Deep Vein Thrombosis/Pulmonary Embolism Present on Admission: No
[2018-03-10 08:00] VITALS: BP 110/70; PULSE 100; RESP 16; TEMP 36.2; O2SAT 97
[2018-03-10] MEDS: ENOXAPARIN 40 MG/0.4 ML SYRINGE SUBCUT (08:21)
[2018-03-10] MEDS: SODIUM CHLORIDE 0.9% FLUSH 10 ML IV (08:21)
[2018-03-10] MEDS: DOCUSATE 100 MG CAPSULE PO (08:22)
--- NOTE | 2018-03-10 09:37 | PT.IPTN ---
Current Diagnoses Displaced bicondylar fracture of right tibia, initial encounter for closed fracture (03/08/18) Physical Therapy Treatment Note M2 PT-IP Current Condition Start: 03/09/18 10:22 Freq: Status: Active Protocol: Document 03/09/18 10:20 RCC (Rec: 03/09/18 10:38 [facility] [id number]) Physical Therapy Current Condition Current Condition Evaluation Date 03/09/18 Treatment Diagnosis R tibial plateau and lateral malleolus fx, impaired mobility Onset Date 03/08/18 Precautions Brace R knee immobilizer @ all times OOB- Dr. Alston fitted pt with knee immobilizer prior to this session. Weight Bearing Status Weight Bearing Status Non-Weight Bearing Allowed Weight Bearing Amount (enter % NWB RLE 8-12 weeks. or #) (%) M3 PT-IP Subjective Start: 03/09/18 10:22 Freq: Status: Active Protocol: Document 03/10/18 09:37 DLM (Rec: 03/10/18 09:54 DLM [id number]) Subjective Physical Therapy Visit Type Type Treatment Note Visit Start Time 09:10 Visit Stop Time 09:37 Total Visit Minutes 27 Number of [employer] Visits 0 Physical Therapy Visit Comments Patient Comments she feels she is ready to go home today, she has wheelchair at her house, Spouse got her a bedside commode to use at night Therapy Pain Assessment Pain When Pain Assessed During Mobility Pain Present Pain Present Pain Reported Location Right Leg Intensity 4 Scale Used Numeric (1 - 10) Description Aching Pain Management Techniques Re-positioning Timing of Activity with Medications M4 PT-IP Mobility and Gait Start: 03/09/18 10:22 Freq: Status: Active Protocol: Document 03/10/18 09:37 DLM (Rec: 03/10/18 09:54 DLM [id number]) PT-Bed Mobility Assessment Rolling Type of Rolling Bilateral Level of Assist Independent Supine to Sit Supine to Sit Independent Sit to Supine Sit to Supine Independent Scooting Scooting to Edge of Bed Independent Scooting Up and Down in Bed Independent PT-Transfer Assessment Sit to and From Stand Sit to and from Stand Independent Use of Upper Extremities Equipment Transfer Assistive Device Front Wheeled Walker Orthotic/Prosthetic Devices or Brace: Yes Transfers Transfer Destination Bed Chair Transfer Technique Stand Pivot Transfer Ability Level of Assist Independent Comments Mobility Comments pt using UE's to assist herself with moving functionally and scooting. She is very good at scooting on left foot Gait Assessment Gait Gait Assistance Required: Standby Assistance Distance (Feet) (feet) 8 Able to Maintain Weight Bearing Status Yes During Gait Assistive Devices Assistive Device Front Wheeled Walker Orthotic/Prosthetic Devices or Brace: Yes Factors Limiting Gait Function Factors Limiting Gait Function Decreased Activity Tolerance Decreased Strength Comments Gait Comments She is able to take small hops forward and backwards with minimal foot clearance, otherwise she uses a scooting motion with her foot on the floor. Pt reports she feels safer scooting than hopping. She is fearful of falling while hopping. She demonstrates good balance with UE support and walker use. Pt does not want a FWW for home and plans to use her 4WW and the seat on it. Good ability to maintain NWB on right LE. PT-Balance Assessment Sitting Balance and Reactions Static Sitting Balance Ability Normal Dynamic Sitting Balance Ability Normal Standing Balance and Reactions Static Standing Balance Ability Good Dynamic Standing Balance Ability Good Device Used FWW M5 PT-IP Objective Assessments Start: 03/09/18 10:22 Freq: Status: Active Protocol: Document 03/09/18 10:20 RCC (Rec: 03/09/18 10:38 RCC [id number]) Orientation Orientation/Cognition Level of Alertness Alert Orientation Name Age Birthday Month Date Year Day of Week Place Situation Language Function Ability No Deficits Noted Safety Awareness Understands Safety Issues Memory Description No Deficits Noted Gross Range of Motion Lower Extremity ROM Assessment Right Impaired Impairments R knee immobilizer due to tibial plateau and lateral malleolus fx. Strength Lower Extremity Strength Assessment Right Impaired Comments Strength Comments RLE weakness but not formally tested due to fx- requires own UE support for SLR. Coordination Assessment Gross Coordination Gross Coordination WNL Sensation Assessment Sensation Gross Sensation WNL Muscle Tone Muscle Tone WNL Yes M6 PT-IP Treatment Start: 03/09/18 10:22 Freq: Status: Active Protocol: Document 03/10/18 09:37 DLM (Rec: 03/10/18 09:54 DLM [email or web address]) Physical Therapy Treatment Education Education Provided Precautions Weight Bearing Status Safety Brace Education [place] Patient Equipment Issued Equipment Type and Company R knee immobilizer placed on pt by Dr. Alston- 16 universal immobilizer from [employer]. Other Treatments Other Treatment Performed educated pt on home safety issues M7 PT-IP Assessment and Plan Start: 03/09/18 10:22 Freq: Status: Active Protocol: Document 03/10/18 09:37 DLM (Rec: 03/10/18 09:54 DLM [email or web address]) PT Summary Assessment and Plan Summary Progress Towards Goals Progressing Toward Goals Safe For Discharge Assessment Summary Pt is progressing well this visit. She is eager to return home. Goals Days to Meet Goals 2 Frequency of Treatment Frequency Of Treatment Twice a Day Treatment Plan Physical Therapy Treatment Plan Gait Training Therapeutic Exercise Discharge Planning Hot or Cold Pack Recommendations To Nursing Amount of Assist Needed 1 Person Assist Discharge Recommendations PT Discharge Recommendations Home with Assistance Equipment Needed for Home Before pt reports she has the Discharge equipment she needs
--- NOTE | 2018-03-10 09:46 | PC.NURSE ---
Patient complaining of 7/10 pain this AM, requested and administered 2 percocet, when reassessed, patient reported pain at 4/10. Patient worked with PT, was up to the BSC, and worked with OT. Patient refused shower with OT stating she, wanting to get out of here. Patient's at bedside assisting patient into personal clothes.
--- NOTE | 2018-03-10 10:05 | OT.IP.TRT ---
Current Diagnoses Displaced bicondylar fracture of right tibia, initial encounter for closed fracture (03/08/18) Occupational Therapy Treatment Note M3 OT- IP Subjective and Pain Start: 03/10/18 09:58 Freq: Status: Active Protocol: Document 03/10/18 09:59 [facility] (Rec: 03/10/18 10:05 [facility] [id number]) OT- Subjective Occupational Therapy Visit Type Type Treatment Note Visit Start Time 09:35 Visit Stop Time 09:45 Total Visit Minutes 10 Notes Touched base with pt for OT eval , pt to be discharged home today. Pt has all equipment needs-FWW, manual wc with elevated leg rest, BSC, reachers, shower seat, HHSP, and husand to assist for all needs. Spoke of options for clothing, cut off shorts/ sweats or gown. PT has already gone over immobilizer donning and doffing and pt aware to wear brace into the shower and take off after sitting down in the shower and re -henry prior to getting up again. Pt going home today with .
--- NOTE | 2018-03-10 10:13 | CM.DPC ---
Ongoing DC Plan and Discharge today: DCP met with patient and spouse who are in pt room awaiting d/c instructions from nurse. They both understand d/c is today and are happy with the plan to d/c to home. Both state spouse is fully capable of taking care of her upon d/c, as he regularly does all the cooking and cleanup. They have no further d/c needs and see no barriers to patient returning home today. Cuca Baum RN
== END 2018-03-10 10:30 | disposition home or self-care (01) ==
LOC: ED 16:13 → AC 03-09 09:13
PROVIDERS: Admitting Provider Orthopaedic Surgery Foot and Ankle Surgery; Emergency Provider Internal Medicine; PCP Internal Medicine; Visit Provider Orthopaedic Surgery Foot and Ankle Surgery
DX: S82.141A Displaced bicondylar fracture of right tibia, initial encounter for closed fracture (principal); S82.491A Other fracture of shaft of right fibula, initial encounter for closed fracture; S82.64XA Nondisplaced fracture of lateral malleolus of right fibula, initial encounter for closed fracture; W11.XXXA Fall on and from ladder, initial encounter; S50.01XA Contusion of right elbow, initial encounter; Z87.891 Personal history of nicotine dependence
CPT/HCPCS: 36591; 73552; 73562; 73610; 73630; 73700; 80048; 85025; 85610; 85730; 93005; 93010; 96374; 97116; 97162; 97530; 99283; 99285; G0378; J1170; J1200; J1650

== ENCOUNTER → 2018-06-02 15:41 | Outpatient (CLI) | payer MEDICARE, OTHER, SELFPAY ==
--- NOTE | 2018-06-02 | DI.RAD.S_ITS ---
PROCEDURE: XR KNEE RT 3V INDICATIONS: KNEE/ANKLE PAIN TECHNIQUE: 3 -views of the knee were acquired. COMPARISON: [facility], , XR KNEE RT 3V, 03/08/2018, 15:48. FINDINGS: Bones: No fractures or dislocations. No suspicious bony lesions. Mild right knee joint degeneration. There is diffuse osteopenia Soft tissues: Small joint effusion. No suspicious soft tissue calcifications. IMPRESSION: Mild right knee joint degeneration. Diffuse osteopenia. Small joint effusion Dictated by: Gucci Moe M.D. on 06/02/2018 at 17:14 Approved by: Gucci Moe M.D. on 06/02/2018 at 17:16
--- NOTE | 2018-06-02 | DI.RAD.S_ITS ---
PROCEDURE: XR ANKLE RT MIN 3V INDICATIONS: KNEE/ANKLE PAIN TECHNIQUE: 3 views of the ankle were acquired. COMPARISON: [facility], CR, XR ANKLE 3+ VIEWS RIGHT, 04/17/2018, 14:33. [facility], CR, XR ANKLE RT MIN 3V, 03/08/2018, 15:48. FINDINGS: Bones: No definite change alignment of lateral malleolar fracture. There is disuse osteopenia. Small plantar calcaneal spur and diffuse hindfoot and midfoot joint degeneration. Soft tissues: No tibiotalar joint effusion. Achilles tendon appears normal. IMPRESSION: No change in alignment of lateral malleolar fracture. Degenerative changes as above Dictated by: Gucci Moe M.D. on 06/02/2018 at 17:16 Approved by: Gucci Moe M.D. on 06/02/2018 at 17:17
== END ==
PROVIDERS: PCP Internal Medicine; Visit Provider Internal Medicine
DX: M17.11 Unilateral primary osteoarthritis, right knee (principal); M19.071 Primary osteoarthritis, right ankle and foot; M25.561 Pain in right knee; M25.571 Pain in right ankle and joints of right foot; M85.861 Other specified disorders of bone density and structure, right lower leg; M25.461 Effusion, right knee; M77.31 Calcaneal spur, right foot
CPT/HCPCS: 73562; 73610

== ENCOUNTER → 2018-09-25 09:41 | Outpatient (CLI) | payer MEDICARE, OTHER, SELFPAY ==
--- NOTE | 2018-09-25 | DI.US.S_ITS ---
PROCEDURE: US PELVIC COMPLETE INDICATIONS: PELVIC AND PERINEAL PAIN TECHNIQUE: Real-time scanning was performed of the pelvic organs, with image documentation. Additional endovaginal scanning was necessary due to incomplete visualization of the adnexal and endometrial structures by transabdominal scanning. COMPARISON: [facility], CT, ABDOMEN/PELVIS WITH CONTRAST, 12/30/2014, 10:42. FINDINGS: Transabdominal scanning: Limited scanning through the kidneys shows no hydronephrosis. The right kidney is not well-seen. No pathologic free abdominal or pelvic fluid. Endovaginal scanning: Uterus: Removed. Ovaries: The right ovary measures 1.3 x 0.7 x 0.9 cm. The left ovary is not seen. No adnexal masses are seen. IMPRESSION: No significant abnormality is seen. Status post hysterectomy. The left ovary is not seen. Dictated by: Zoltan Deluna M.D. on 09/25/2018 at 10:37 Approved by: Zoltan Deluna M.D. on 09/25/2018 at 10:38
== END ==
PROVIDERS: PCP Internal Medicine; Visit Provider Physician Assistant
DX: R10.2 Pelvic and perineal pain (principal); Z90.710 Acquired absence of both cervix and uterus
CPT/HCPCS: 76830; 76856

== ENCOUNTER → 2018-10-13 15:13 | Outpatient (CLI) | payer MEDICARE, OTHER, SELFPAY ==
[2018-10-13 16:44] LABS: BUN Creatinine Ratio 18.2 (6-22); Blood Urea Nitrogen 20 mg/dL (7-17); Estimated Glomerular Filt Rate 48.6 mL/min (>60)
== END ==
PROVIDERS: PCP Internal Medicine; Visit Provider Internal Medicine
DX: R19.7 Diarrhea, unspecified (principal); R10.84 Generalized abdominal pain
CPT/HCPCS: 36415; 82565; 84520

== ENCOUNTER → 2018-10-14 11:00 | Outpatient (CLI) | payer MEDICARE, OTHER, SELFPAY ==
--- NOTE | 2018-10-14 | DI.CT.S_ITS ---
PROCEDURE: CT ABDOMEN PELVIS W CON INDICATIONS: DIARRHEA/ABDOMINAL PAIN ALL OVER TECHNIQUE: After the administration of intravenous contrast, 5 mm thick sections acquired from the diaphragm to the symphysis. 5 mm coronal and sagittal reformats were acquired. For radiation dose reduction, the following was used: automated exposure control, adjustment of mA and/or kV according to patient size. COMPARISON: [facility], CT, CT LE RT WO CON, 03/08/2018, 17:04. [facility], CT, ABDOMEN/PELVIS WITH CONTRAST, 12/30/2014, 10:42. [facility], CT, ABDOMEN/PELVIS WITH CONTRAST, 05/21/2013, 12:10. [facility], CT, ABDOMEN/PELVIS WITH CONTRAST, 07/01/2012, 11:55. FINDINGS: Image quality: Excellent. ABDOMEN: Lung bases: Three 2 mm pulmonary nodules in the right lower lobe on axial image 9 of series 3 and one 2 mm pulmonary nodule in the left lower lobe on axial image 11 of series 3 are stable to comparison exam of 05/21/13. Heart size is normal. Solid organs: There is diffuse hypoattenuation consistent with steatosis. Post surgical changes of prior cholecystectomy with a displaced surgical clip near the inferior margin of the right hepatic lobe, and mild ectasia of the extrahepatic biliary ducts. Pancreas enhances normally. Spleen is normal in size and enhancement. No adrenal nodules. Kidneys demonstrate normal size and enhancement, without hydronephrosis. Peritoneum and bowel: There is small hiatal hernia. Bowel loops demonstrate normal wall thickness and caliber. No free fluid or air. There is sigmoid colon diverticulosis without evidence of acute diverticulitis. The appendix is not clearly identified on this exam, but there are no right lower quadrant inflammatory findings to suggest acute appendicitis. Nodes and vessels: No retroperitoneal or mesenteric adenopathy by size criteria. Aorta and inferior vena cava are normal in size. There is mild calcified plaque of the abdominal aorta and branch vessels. Miscellaneous: No ventral hernias. PELVIS: Genitourinary: Bladder wall thickness is normal. Uterus is absent. No abnormal adnexal masses. Miscellaneous: Bilateral fat-containing inguinal hernias noted. Bones: Postsurgical changes of L5-S1 right posterior partial spinal fusion there is approximately 1.0 cm of anterolisthesis of L5 on S1. There are moderate multilevel degenerative changes of the imaged spine. IMPRESSION: 1. Diffuse hepatic steatosis. 2. Small hiatal hernia. 3. Sigmoid colon diverticulosis without evidence of acute diverticulitis. 4. Bilateral fat-containing inguinal hernias. 5. Postsurgical changes of right L5-S1 posterior spinal fusion with 1.0 cm of anterolisthesis of L5 on S1. Dictated by: Armando Schwarz M.D. on 10/14/2018 at 16:59 Approved by: Armando Schwarz M.D. on 10/14/2018 at 17:43
== END ==
PROVIDERS: PCP Internal Medicine; Visit Provider Internal Medicine
DX: R10.84 Generalized abdominal pain (principal); R19.7 Diarrhea, unspecified; R91.8 Other nonspecific abnormal finding of lung field; K76.0 Fatty (change of) liver, not elsewhere classified; K57.30 Diverticulosis of large intestine without perforation or abscess without bleeding; K40.20 Bilateral inguinal hernia, without obstruction or gangrene, not specified as recurrent; K44.9 Diaphragmatic hernia without obstruction or gangrene; I70.0 Atherosclerosis of aorta; Z90.49 Acquired absence of other specified parts of digestive tract; Z78.1 Physical restraint status
CPT/HCPCS: 74177; Q9967

== ENCOUNTER 2019-07-17 14:19 | Emergency (ER) | payer MEDICARE, OTHER, SELFPAY ==
[2019-07-17 14:31] VITALS: BP 117/72; PULSE 97; RESP 15; TEMP 36.6; O2SAT 96; BMI 30.1
--- NOTE | 2019-07-17 14:34 | DI.RAD.S_ITS ---
PROCEDURE: XR KNEE RT 3V INDICATIONS: knee pain 2 weeks,diff walking TECHNIQUE: 3 views of the knee were acquired. COMPARISON: [facility], CR, XR KNEE RT 3V, 06/02/2018, 15:23. FINDINGS: Bones: Cortical step-off measuring 1 mm involving the lateral tibial plateau. No suspicious bony lesions. Mild right knee joint degeneration. Scattered degenerative subchondral sclerosis and spurring. Soft tissues: Small joint effusion. IMPRESSION: Cortical step-off irregularity involving the lateral tibial plateau as above. Technically cannot exclude acute fracture and further assessment with MRI to assess for acute marrow edema could be performed as clinically warranted. Small joint effusion Dictated by: Gucci Moe M.D. on 07/17/2019 at 15:25 Approved by: Gucci Moe M.D. on 07/17/2019 at 15:27
--- NOTE | 2019-07-17 15:36 | PC.NURSE ---
pt reports that she broke her R knee and ankle last year. No surgical repair. was helpinf her off the floor about 1-2 weeks ago and thinks she re pulled or re-injured her knee. able to flex and extend. ambulatory with pain. reports it gets swollen and sometimes warm to touch. relieved with oxycodone. denies blood thinners. denies recent travel, h/o DVT, or recent surgery. knee XR'd in triage, adequate pedal pulse, awaiting MD assessment.
--- NOTE | 2019-07-17 16:11 | ED.LOWEXIN ---
HPI - Extremity Injury (Lower) <PAULIE Gudino - Last Filed: 07/18/19 01:12> General Chief Complaint: Extremity Injury, Lower Stated Complaint: right knee pain Time Seen by Provider: 07/17/19 15:00 Source: patient Mode of arrival: Ambulatory Limitations: no limitations History of Present Illness HPI Narrative: This is a 74-year-old female, history of right tibia plateau fracture and dislocation in 02/2018, prior smoker, who presents to ED with spouse with nontraumatic right posterior sharp knee pain for 1 day. Patient reports she had achy discomfort for 3-4 days prior to this and the severe pain started when she stood up from a chair suddenly she felt a sharp and could not bear her weight due to discomfort. Right tibia plateau fracture was managed conservatively with knee brace and without surgical intervention. Since the injury she has some discomfort on affected knee and this gets better after she feels the pop but since yesterday she could not pop her knee. Patient reports swelling and tightness on pre patella region. Patient reports intact sensation distal to her knee and is able to move her toes without difficulty. Related Data Home Medications Medication Instructions Recorded Confirmed multivitamin with minerals 1 tab PO DAILY #0 08/25/10 07/17/19 cholecalciferol (vitamin D3) 400 unit PO DAILY 07/17/19 07/17/19 [Vitamin D3] cyclobenzaprine 5 mg PO DAILY PRN 07/17/19 07/17/19 escitalopram oxalate 10 mg PO QPM 07/17/19 07/17/19 lorazepam 0.5 mg PO BID 07/17/19 07/17/19 omeprazole 20 mg PO BID 07/17/19 07/17/19 oxycodone 5 - 10 mg PO QID PRN 07/17/19 07/17/19 pramipexole 0.125 mg PO BID 07/17/19 07/17/19 rosuvastatin 10 mg PO QPM 07/17/19 07/17/19 tiotropium bromide [Spiriva with 18 mcg INHALATION DAILY 07/17/19 07/17/19 HandiHaler] venlafaxine 75 mg PO DAILY 07/17/19 07/17/19 Previous Rx's Medication Instructions Recorded hydrocodone-acetaminophen [Chester] 1 tab PO TID PRN #10 tab 07/17/19 ondansetron 4 mg PO Q8-12H PRN #7 tab 07/17/19 Allergies Allergy/AdvReac Type Severity Reaction Status Date / Time Sulfa (Sulfonamide Allergy Mild Rash Verified 07/17/19 14:31 Antibiotics) adhesive tape AdvReac Mild SENSITIVE Verified 07/17/19 14:31 TO PAPER codeine AdvReac Mild Nausea/Vomi Verified 07/17/19 14:31 ting Review of Systems <PAULIE Gudino - Last Filed: 07/18/19 01:12> Review of Systems Narrative: General: Denies fever, chills, fatigue, malaise, sweats. HEENT: Denies sinus pain, ear pain, sore throat, difficulty swallowing, dizziness. Respiratory: Denies dyspnea, cough, wheezing, hemoptysis, sputum. Cardiovascular: Denies chest pain, palpitations, orthopnea, edema. Gastrointestinal: Denies nausea, vomiting, abdominal pain, diarrhea, constipation, melena. : Denies dysuria, frequency, incontinence, hematuria, urinary retention. Musculoskeletal: See HPI Skin: Denies rash, skin lesions, or other. Neurologic: Denies weakness, headache, numbness, change in speech, confusion, seizures, incoordination. Psychiatric: No concerning psychosocial issues. 12-point review of systems is negative except for those stated above. Patient History <PAULIE Gudino - Last Filed: 07/18/19 01:12> Medical History Bilateral hip bursitis (Chronic) Closed right ankle fracture (Acute) Hypothyroidism (Inactive) Irritable bowel syndrome (IBS) (Chronic) Low back pain (Chronic) Reactive airway disease (Chronic) Tibial plateau fracture, right (Acute) Surgical History H/O lumbosacral spine surgery (Resolved) H/O: hysterectomy (Resolved) Hx of cholecystectomy (Resolved) Status post right foot surgery (Resolved) Social History household members: spouse Smoking Status: Former smoker substance use type: does not use alcohol intake frequency: holidays/special occasions only Substance Use Type: does not use Exam <Bari PAULIE Fernandes - Last Filed: 07/18/19 01:12> Narrative Exam Narrative: General appearance: well developed, well nourished, in no acute distress. Head: normocephalic, atraumatic, no scalp lesions, non-tender. Eye: pupil equal, round. EOMI. Nose: nares patent. Oral: mucosa moist. Neck/Thyroid: neck supple, full range of motion, no visible masses. Skin: no suspicious rashes, lesions over visible areas. Warm and dry. Heart: no clubbing, no cyanosis, no edema. Lungs: Breathing even and unlabored. No stridor. No accessory muscles used. Chest: normal shape and expansion. Abdomen: non-obese, non-distended. Neurologic: alert and oriented. Cognitive exam, [employer] and PNS grossly intact on informal exam. Psych: good eye contact, normal affect. Initial Vital Signs Initial Vital Signs: Vital Signs Temperature 97.8 F 07/17/19 14:31 Pulse Rate 97 H 07/17/19 14:31 Respiratory Rate 15 07/17/19 14:31 Blood Pressure 117/72 07/17/19 14:31 Pulse Oximetry 96 07/17/19 14:31 Extrem Right lower extremity: knee Details: normal to inspection, tenderness Location: of the pre-patellar area, swelling Location: of the pre-patellar area, abnormal ROM Details: pain with active ROM during and pain with passive ROM during and knee ligament exam abnormal Details: posterior drawer test normal, valgus stress test normal, varus stress test normal and Josephine's test normal and foot Details: toes with normal ROM, vascular exam Details: dorsalis pedis pulse present and normal capillary refill and motor-sensory exam Details: light-touch normal Left lower extremity: normal to inspection and full ROM <April Lugo DO - Last Filed: 07/18/19 07:18> Initial Vital Signs Initial Vital Signs: Vital Signs Temperature 97.8 F 07/17/19 14:31 Pulse Rate 97 H 07/17/19 14:31 Respiratory Rate 15 07/17/19 14:31 Blood Pressure 117/72 07/17/19 14:31 Pulse Oximetry 96 07/17/19 14:31 Procedures <Bari PAULIE Fernandes - Last Filed: 07/18/19 01:12> Orthopedic Splinting/Casting Injury #1: Side: right Lower Extremity Injury Location: knee Lower Extremity Immobilizer: knee immobilizer Other Orthopedic Equipment: other (Patient will use her own walker which she has at home) Post splinting neuro exam: intact Post splinting vascular exam: intact Placed by: Nursing Scores <Bari MaherangAlexandraRITESH CmP - Last Filed: 07/18/19 01:12> GCS Nigel coma scale eye opening: Spontaneous [place] coma scale verbal response: Orientated [place] coma scale motor response: Obey commands [place] coma scale total score: 15 Course <Bari MaherPAULIE Holden - Last Filed: 07/18/19 01:12> Orders Ordered: ED Orders 07/17/19 14:34 XR knee RT 3V Stat Vital Signs Vital signs: Vital Signs - 8 hr 07/17/19 17:07 07/17/19 17:16 Pulse Rate 74 74 Respiratory Rate 16 18 Blood Pressure 143/81 H Blood Pressure [Right Wrist] 143/81 H Pulse Oximetry 98 99 <April Lugo DO - Last Filed: 07/18/19 07:18> Orders Ordered: ED Orders 07/17/19 14:34 XR knee RT 3V Stat Vital Signs Vital signs: Vital Signs - 8 hr 07/17/19 17:07 07/17/19 17:16 Pulse Rate 74 74 Respiratory Rate 16 18 Blood Pressure 143/81 H Blood Pressure [Right Wrist] 143/81 H Pulse Oximetry 98 99 MDM - Extremity Injury (Lower) <Bari MaherPAULIE Holden - Last Filed: 07/18/19 01:12> Differential Diagnosis Differential diagnosis: Likely other (Knee sprain, PCL injury, knee dislocation) Medical Records Attestation: I reviewed the patient's medical records. Imaging Data XR-Knee RT: Radiologist's impression: [address] [address] XRay Report Signed Patient: Meghan Bauman [facility]#: [id number] : 4Acct:[id number] Age/Sex: 74 / FDate of Service: 07/17/19 Loc: ED Accession Number: [id number] Procedure: XR knee RT 3V Ordering Provider: April Lugo D.O. PROCEDURE: XR KNEE RT 3V INDICATIONS: knee pain 2 weeks,diff walking TECHNIQUE: 3 views of the knee were acquired. COMPARISON: [facility], CR, XR KNEE RT 3V, 06/02/2018, 15:23. FINDINGS: Bones: Cortical step-off measuring 1 mm involving the lateral tibial plateau. No suspicious bony lesions. Mild right knee joint degeneration. Scattered degenerative subchondral sclerosis and spurring. Soft tissues: Small joint effusion. IMPRESSION: Cortical step-off irregularity involving the lateral tibial plateau as above. Technically cannot exclude acute fracture and further assessment with MRI to assess for acute marrow edema could be performed as clinically warranted. Small joint effusion Dictated by: Gucci Moe M.D. on 07/17/2019 at 15:25 Approved by: Gucci Moe M.D. on 07/17/2019 at 15:27 MDM Narrative Medical decision making narrative: This is a 74-year-old female who presents to ED with nontraumatic right posterior knee pain after she stood up from a chair yesterday. Patient has history of tibia plateau fracture on right knee about a year ago and treated conservatively and has problems since then. Today's knee x-ray shows cortical step-off irregularity in lateral tibial plateau were she had fractures in the past. Patient has intact circulation and sensation posterior to injury side. Patient has limited range a active and passive range of motion due to pain. Labs were discussed with the patient and affected knee was splinted with knee immobilizer and advised to use walker for nonweightbearing. Patient advised to take mainly [id number] Tylenol and or Motrin and Chester for severe pain as needed and use RiCE therapy. Patient advised to follow up with Christopher beauchamp and contact information has been provided. Return precautions were discussed with patient and verbalized understanding and agrees with treatment plan. Discharge Plan Departure Patient Disposition: Home Clinical Impression: Posterior knee pain Qualifiers: Laterality: right Qualified Code(s): M25.561 - Pain in right knee Discharge Date/Time: 07/17/19 17:18 Instructions: DI for Knee Pain Activity Restrictions/Additional Instructions: You have been diagnosed with [acute right posterior knee pain. History of right knee tibia plateau fracture. X-ray test shows there is a step of irregularity in the lateral tibial plateau and small joint effusion]. What to do: *Take your medications as directed. Chester is a narcotic pain medications and may cause drowsiness. Please do not take Chester along the oxycodone.. Please do not drive/drink alcohol/operate heavy equipment, be careful with balance, may cause constipation. Please use knee brace for discomfort, elevate affected leg, use ice for next couple of days, limit weight-bearing by using the walker that you have at home. *Follow up with your primary care provider in 2-3 days, call for an appointment. Please contact [facility] to follow up with her knee pain. You may need MRI test in the near future if you continue to have pain. Let them know you were seen in the ED and that we asked you to be seen in follow up. *Return to ED if you have any new, worsening, or concerning symptoms, such as [worsening pain, fever, chest pain, breathing difficulty, unable to tolerate fluids, tingling/numbness/weakness to right leg or any acute concerns]. Prescriptions: New hydrocodone-acetaminophen [Chester] 5-325 mg tablet 1 tab PO TID PRN (Reason: pain) Qty: 10 RF: 0 ondansetron 4 mg tablet,disintegrating 4 mg PO Q8-12H PRN (Reason: nausea and vomiting) Qty: 7 RF: 0 No Action multivitamin with minerals Tablet 1 tab PO DAILY Qty: 0 RF: 0 venlafaxine 75 mg capsule,extended release 24hr 75 mg PO DAILY RF: 0 lorazepam 0.5 mg tablet 0.5 mg PO BID RF: 0 pramipexole 0.125 mg tablet 0.125 mg PO BID RF: 0 omeprazole 20 mg capsule,delayed release(DR/EC) 20 mg PO BID RF: 0 oxycodone 5 mg tablet 5 - 10 mg PO QID PRN (Reason: pain) RF: 0 escitalopram oxalate 10 mg tablet 10 mg PO QPM RF: 0 cyclobenzaprine 5 mg tablet 5 mg PO DAILY PRN (Reason: Spasms) RF: 0 rosuvastatin 10 mg tablet 10 mg PO QPM RF: 0 Spiriva with HandiHaler 18 mcg capsule, w/inhalation device 18 mcg INHALATION DAILY RF: 0 cholecalciferol (vitamin D3) [Vitamin D3] 400 unit Tablet 400 unit PO DAILY RF: 0 Referrals: [facility] [Provider Group] John Almeida MD [Primary Care Provider] -
[2019-07-17 17:07] VITALS: BP 143/81; PULSE 74; RESP 16; O2SAT 98
[2019-07-17 17:16] VITALS: BP 143/81; PULSE 74; RESP 18; O2SAT 99
== END 2019-07-17 17:18 | disposition home or self-care (01) ==
PROVIDERS: Emergency Provider Nurse Practitioner Family; Family Provider Internal Medicine; PCP Internal Medicine
DX: M25.561 Pain in right knee (principal); Z87.81 Personal history of (healed) traumatic fracture
CPT/HCPCS: 73562; 99283

== ENCOUNTER → 2019-07-29 18:51 | Outpatient (CLI) | payer MEDICARE, OTHER, SELFPAY ==
--- NOTE | 2019-07-29 18:54 | DI.MRI.S_ITS ---
PROCEDURE: MR KNEE RT WO CON INDICATIONS: PAIN IN RIGHT KNEE TECHNIQUE: Noncontrast sagittal PD fast spin echo and T2 fast spin echo with fat saturation, sagittal 3-D FLASH with fat saturation; coronal T1 spin echo and PD fast spin echo with fat saturation, and axial PD fast spin echo with fat saturation through the knee. COMPARISON: [facility], CR, KNEE 3V RIGHT, 01/05/2016, 14:30. [facility], CR, XR KNEE 3 VIEWS RIGHT, 04/17/2018, 14:38. [facility], CR, XR KNEE RT 3V, 06/02/2018, 15:23. [facility], CR, XR KNEE RT 3V, 07/17/2019, 14:30. FINDINGS: Image quality: Excellent. Menisci: There is complex tear in the posterior horn of the lateral meniscus. In addition, there is horizontal tear involving the body of the lateral meniscus. The medial medial meniscus demonstrates normal morphology and internal signal. The meniscal root ligaments appear intact. Cruciate ligaments: The proximal anterior cruciate ligament appears thickened and irregular consistent with partial tear/scarring. The posterior cruciate ligament is intact. Medial structures: The medial collateral ligament appears intact. The semimembranosus tendon insertions and meniscocapsular junction appear intact. Visualized portions of the pes anserinus tendons appear normal. No abnormal bursal fluid. Lateral structures: The lateral collateral ligament and the biceps femoris tendon appear intact. The popliteus tendon appears normal. Iliotibial band appears normal. Anterior structures: The quadriceps and patellar tendons appear intact. Patellar alignment is normal. No femoral trochlear dysplasia or ventral trochlear prominence. No edema in the infrapatellar fat pad. Bones and cartilage: Suspect old fracture of the lateral tibial plateau with deformity. No bone marrow contusions. There is mild tricompartmental cartilage thinning and fibrillation. Joint space: There is small knee joint fluid. Tiny Ferrell's cyst. Normal appearing synovial plicae are incidentally noted. IMPRESSION: 1. Complex tear of the posterior horn and horizontal tear of the body of the medial meniscus. 2. Partial tear/scarring of the proximal anterior cruciate ligament. 3. Suspect old lateral tibial plateau fracture. 4. Mild tricompartmental cartilage thinning and fibrillation. 5. Small knee joint effusion. Dictated by: Chris Hong M.D. on 07/30/2019 at 10:12 Approved by: Chris Hong M.D. on 07/30/2019 at 17:54
== END ==
PROVIDERS: Family Provider Internal Medicine; PCP Internal Medicine; Visit Provider Orthopaedic Surgery Adult Reconstructive Orthopaedic Surgery
DX: M25.561 Pain in right knee (principal); S83.271A Complex tear of lateral meniscus, current injury, right knee, initial encounter; S83.241A Other tear of medial meniscus, current injury, right knee, initial encounter; M25.461 Effusion, right knee
CPT/HCPCS: 73721

== ENCOUNTER → 2020-02-17 15:32 | Outpatient (CLI) | payer MEDICARE, OTHER, SELFPAY ==
--- NOTE | 2020-02-17 | DI.RAD.S_ITS ---
PROCEDURE: XR CHEST 2V INDICATIONS: ACUTE BRONCHITIS TECHNIQUE: 2 views of the chest were acquired. COMPARISON: None. FINDINGS: Surgical changes and devices: Cholecystectomy clips. Lungs and pleura: Small right-sided pleural fluid collection. Patchy opacity noted in the right lung base which could represent atelectasis or pneumonia. Mild central bronchial wall thickening compatible with reported bronchitis. No pneumothorax. Mediastinum: Mediastinal contours are normal. Heart size is normal. Bones and chest wall: No suspicious bony abnormalities. Soft tissues appear unremarkable. IMPRESSION: 1. Mild central bronchial wall thickening compatible with bronchitis. 2. Small right-sided pleural effusion 3. Patchy opacities in the right lung base compatible with atelectasis versus pneumonia. Dictated by: Lashell Villarreal MD, PhD on 02/17/2020 at 16:38 Approved by: Lashell Villarreal MD, PhD on 02/17/2020 at 16:40
== END ==
PROVIDERS: Family Provider Internal Medicine; PCP Internal Medicine; Referring Provider Internal Medicine; Visit Provider Internal Medicine
DX: J20.9 Acute bronchitis, unspecified (principal); J90 Pleural effusion, not elsewhere classified
CPT/HCPCS: 71046